=== PATIENT | male | born 1950 | race Caucasian/White ===

== ENCOUNTER → 2018-12-14 | Outpatient (CLI) | payer MEDICARE ==
[2014-07-29 04:25] VITALS: BP 121/64
[~2018-12-14] MED LIST: LISI-334 PO; metoprolol
--- NOTE | 2018-12-14 13:48 | RAD ---
EXT NON VASC RIGHT History: Right upper extremity lump for 2 weeks Comparison: None. Findings: Multiple sonographic images of the right upper extremity are submitted. At site of palpable concern, there is a heterogeneous solid-appearing mass on the order of 3 x 1.6 x 2.7 cm, some associated vascularity near the periphery and apparently tract of echogenicity extending near the skin surface. There is a separate focus of adjacent, avascular echogenicity with diffuse internal echoes about 2.1 x 1.7 x 1.4 cm in size. Impression: 1. There are 2 foci of abnormal heterogeneous echogenicity at site of concern of the right upper extremity. One these is associated with some internal vascularity with a thin tract of echogenicity extending to the skin surface. These could be due to sites of inflammatory change/phlegmon, although masses from other etiologies not excluded. Electronically signed by: Desean Parry MD (12/14/2018 1:45 PM) [id number]
== END | disposition home or self-care (01) ==
LOC: US 08:45
PROVIDERS: ATTEND Family Medicine
DX: R22.31 Localized swelling, mass and lump, right upper limb (principal)
CPT/HCPCS: 76881

== ENCOUNTER 2019-01-11 17:36 | Emergency (ER) | payer MEDICARE ==
[2014-07-29 04:25] VITALS: BP 121/64
[2019-01-11] MEDS ORDERED: LIDOCAINE 2% 20 ML VIAL. IJ ONE (18:45)
--- NOTE | 2019-01-11 19:05 | PHYS DOC ---
Past History Past Medical History: Hypertension Past Surgical History: Other Alcohol Use: Occasionally Drug Use: None Adult General Chief Complaint Chief Complaint: POST-OP PROBLEM HPI HPI Patient is a 68 year old male who presents with complaint of wound dehiscence. The patient had a cyst removed from his right upper arm by Dr. Truong 3 weeks ago. States that he recently had his sutures taken out and had Steri-Strips over the wound. Was reaching up to pain earlier today when the wound came completely open. Had blood and drainage coming from the wound immediately after this took place. He contacted Dr. Truong who advised patient to come to the emergency department. Dr. Truong called ahead of patient's arrival and spoke with Dr. Bloom. He advised that if the wound did not appear to be infected that he have a loose closure done in the emergency department with recommendation to follow-up in his clinic tomorrow. Patient denies any other complaints at this time. Review of Systems Review of Systems Constitutional: Denies fever or chills [] Eyes: Denies change in visual acuity, redness, or eye pain [] HENT: Denies nasal congestion or sore throat [] Respiratory: Denies cough or shortness of breath [] Cardiovascular: Denies chest pain or edema[] GI: Denies abdominal pain, nausea, vomiting, bloody stools or diarrhea [] : Denies dysuria or hematuria [] Musculoskeletal: Denies back pain or joint pain [] Integument: Right upper arm wound[] Neurologic: Denies headache, focal weakness or sensory changes [] All other systems were reviewed and found to be within normal limits, except as documented in this note. Current Medications Current Medications Current Medications Medications (Trade) Dose Ordered Sig/Yevgeniy Start Time Stop Time Status Last Admin Dose Admin Lidocaine HCl 20 ml 1X ONCE 01/11/19 18:45 01/11/19 18:46 DC 01/11/19 18:37 20 ML Allergies Allergies Allergies Coded Allergies Type Severity Reaction Last Updated Verified No Known Drug Allergies 07/29/14 No Physical Exam Physical Exam Constitutional: Well developed, well nourished, no acute distress, non-toxic appearance. [] HENT: Normocephalic, atraumatic, bilateral external ears normal, oropharynx moist, no oral exudates, nose normal. [] Eyes: PERRLA, EOMI, conjunctiva normal, no discharge. [] Neck: Normal range of motion, no tenderness, supple, no stridor. [] Cardiovascular:Heart rate regular rhythm, no murmur [] Lungs & Thorax: Bilateral breath sounds clear to auscultation [] Abdomen: Bowel sounds normal, soft, no tenderness, no masses, no pulsatile masses. [] Skin: Warm, dry, no erythema, no rash. [] Back: No tenderness, no CVA tenderness. [] Extremities: Right upper arm wound dehiscence measuring approximately 5 cm x 4 cm, depth of wound down to fascia, good granulation tissue present and base of wound, no purulent drainage. [] Neurologic: Alert and oriented X 3, normal motor function, normal sensory function, no focal deficits noted. [] Current Patient Data Lab Results Not performed EKG EKG Not performed[] Radiology/Procedures Radiology/Procedures Indication: Right upper arm wound dehiscence Procedure: The patient was placed in the appropriate position and anesthesia around the wound was achieved with injection of lidocaine 2%. The area was then cleansed with saline and skin was prepped with Betadine. The laceration was loosely approximated using a simple interrupted 3-0 Ethilon sutures. Half-inch iodoform packing strip was then placed into the wound. A total of 3 strips were placed measuring approximately 12 cm total. The wound area was then dressed with Telfa and gauze. Total repaired wound length: 5 cm. Other Items: Total suture count: 4 The patient tolerated the procedure without difficulty. Complications: None. Course & Med Decision Making Course & Med Decision Making Pertinent Labs and Imaging studies reviewed. (See chart for details) Patient's wound was loosely approximated as instructed by Dr. Truong in the emergency department. A bulky dressing was placed over the wound. Patient recommended to follow-up tomorrow with Dr. Truong in surgery clinic. Advised return to emergency department for any worsening symptoms. Patient was understanding and in agreement with treatment plan.[] Dragon Disclaimer Dragon Disclaimer This electronic medical record was generated, in whole or in part, using a voice recognition dictation system. Departure Departure: Impression: Primary Impression: Wound dehiscence Disposition: HOME, SELF-CARE Condition: IMPROVED Referrals: ILSA JENKINS MD (PCP) DOMINIC TRUONG MD Patient Instructions: Wound Dehiscence Additional Instructions: Follow-up with Dr. Truong tomorrow for reevaluation. Return to the emergency department for any worsening symptoms. DENISE DYER MD Jan 11, 2019 19:05
== END 2019-01-11 19:25 | disposition home or self-care (01) ==
LOC: ER 17:36
DX: T81.31XA Disruption of external operation (surgical) wound, not elsewhere classified, initial encounter (principal); I10 Essential (primary) hypertension; Z98.890 Other specified postprocedural states
CPT/HCPCS: 12020; 99284; J2001

== ENCOUNTER → 2019-11-15 | Outpatient (CLI) | payer MEDICARE ==
[2014-07-29 04:25] VITALS: BP 121/64
--- NOTE | 2019-11-15 10:15 | RAD ---
EXAM: CT Lung Cancer Screening Chest without IV contrast INDICATION: Lung cancer screening. Smoker for 30 years at 1 1/2 packs a day, quit 10 years ago. greater than 30 year pack history. TECHNIQUE: Multi-detector row low dose CT images were acquired from the thoracic inlet through the upper abdomen without the use of IV contrast. Scanning parameters were adjusted for evaluation of lung parenchyma for developing lung carcinoma with limited patient exposure. Sagittal and coronal images were acquired from the transaxial data. All CT scans performed at this facility utilize dose optimization techniques as appropriate to the exam, including the following: Automated exposure control and adjustment of the mA and/or KV according to patient size (this includes techniques or standardized protocols for targeted exams where dose is indication/reason for exam). COMPARISON: Abdomen CT of 02/12/2011 FINDINGS: The absence of IV contrast limits evaluation of soft tissue pathology. CARDIOVASCULAR: Borderline ectasia of the ascending thoracic aorta at 4.1 cm. No intramural hematoma. Dense multivessel quadrant calcifications. Normal heart size. No pericardial effusion. MEDIASTINUM & ROSHAN: Extensive mediastinal calcified lymph nodes and bilateral hilar calcified nodes. There is an 8 mm upper right paratracheal node that has not yet fully calcified. LUNGS: Calcified granuloma right upper lobe measuring 8 mm (image 53 of axial series 2 is associated tiny satellite nodules that are less densely calcified. PLEURAL SPACE: No pleural effusions. No pneumothorax. OSSEOUS & SOFT TISSUES: Unremarkable. ABDOMEN: The visualized portions of the upper abdomen are normal. Lung-RADS ASSESSMENT: LUNG-RADS CATEGORY 2: Benign Appearance or Behavior/Nodules with a very low likelihood of becoming a clinically active cancer due to size or lack of growth. -- Continue annual screening with LDCT in 12 months. E2: Soft tissue structures and skeletal structures other than the lungs contain benign findings that do not require additional follow up. That is, for malignancy surveillance. However, follow-up for cardiovascular disease is recommended. IMPRESSION: 1. Benign CT lung cancer screening findings with no evidence of malignancy. Follow up recommendations as above. 2. Evidence of granulomatous disease and atherosclerosis. Recommend clinical follow-up. Electronically signed by: Raphael Chirinos MD (11/15/2019 10:12 AM) [id number]
== END | disposition home or self-care (01) ==
LOC: CT 07:59
PROVIDERS: ATTEND Family Medicine
DX: Z00.00 Encounter for general adult medical examination without abnormal findings (principal); Z87.891 Personal history of nicotine dependence; J84.10 Pulmonary fibrosis, unspecified
CPT/HCPCS: G0297

== ENCOUNTER → 2020-12-03 | Outpatient (CLI) | payer MEDICARE ==
[2014-07-29 04:25] VITALS: BP 121/64
[~2020-12-03] MED LIST changes: -LISI-334 PO; +LISI20TA18 PO
--- NOTE | 2020-12-03 09:55 | RAD ---
CT LOW DOSE LUNG SCREEN dated 12/03/2020 9:00 AM Indication:Reason: NICOTINE DEPENDENCE / Spl. Instructions: / History: Comparison: CT 11/15/2019. Technique: Helical low-dose noncontrast images were performed. One or more of the following individualized dose reduction techniques were utilized for this examinat ion: 1. Automated exposure control 2. Adjustment of the mA and/or kV according to patient size 3. Use of iterative reconstruction technique Findings: A small calcified granulomas again seen in the middle lobe. There are some bandlike densities in the lungs consistent with areas of scarring or atelectasis. No significant new nodule is seen. The centra l airways show no obstruction. Evaluation of the mediastinum and stephanie is slightly limited by noncontr ast technique. There are calcified mediastinal and right hilar nodes consistent with prior granulomat ous infection. No new enlarged nodes are seen. Images through the upper abdomen show no new abnormality. IMPRESSION: No significant new nodule. Benign nodules. Follow-up CT in one year is recommended. Lung RADS category 1. Electronically signed by: Zurdo Nava Jr., MD (12/03/2020 9:53 AM) [id number]
== END ==
LOC: CT 08:49
PROVIDERS: ATTEND Family Medicine
DX: Z12.2 Encounter for screening for malignant neoplasm of respiratory organs (principal); R91.8 Other nonspecific abnormal finding of lung field; J84.10 Pulmonary fibrosis, unspecified; F17.201 Nicotine dependence, unspecified, in remission; R59.0 Localized enlarged lymph nodes
CPT/HCPCS: 71271

== ENCOUNTER → 2021-01-04 | Outpatient (CLI) | payer MEDICARE ==
[2014-07-29 04:25] VITALS: BP 121/64
[~2021-01-04] MED LIST changes: +IOHEXOL 240 MG/ML 50ML VIAL. ONE; +IOHEXOL 240 MG/ML 50ML VIAL. PO ONE
[2021-01-04] MEDS: IOHEXOL 300 MG/ML 75 ML VIAL. IV ONE (08:45)
--- NOTE | 2021-01-04 10:24 | RAD ---
Exam: CT abdomen/pelvis with intravenous contrast Indication: Abdominal pain Comparison: None Technique: Helical CT imaging performed of the abdomen and pelvis after the intravenous administratio n of 60 mL Omnipaque 300 contrast. Sagittal and coronal reformats were obtained. One or more of the following individualized dose reduction techniques were utilized for this examinat ion: 1. Automated exposure control 2. Adjustment of the mA and/or kV according to patient size 3. Use of iterative reconstruction technique. Findings: Lower chest: Mild atelectasis in the lingula. There is a calcified granuloma in the right middle lobe and calcified bilateral hilar lymph nodes.. Heart is normal in size. There are coronary artery calci fications. Liver: 1 cm cyst in the right hepatic lobe. The liver is otherwise unremarkable. Gallbladder/Biliary Tree: Normal. Pancreas: Normal. Spleen: Normal. Adrenal Glands: Normal. Kidneys/Ureters/Bladder: Kidneys are normal in size and enhance symmetrically. No hydronephrosis. Ure ters and bladder are normal. Reproductive Organs: Prostate gland is unremarkable. Stomach, small bowel, and colon: The stomach is normal. No small bowel obstruction. The appendix is n ormal. There is sigmoid diverticulosis without acute diverticulitis. Vasculature: No aortic aneurysm. Mild calcified aortoiliac atherosclerosis Lymph Nodes: No lymphadenopathy. Peritoneum and retroperitoneum: No free fluid or free air. Bones: No acute osseous abnormality. There is degenerative disc disease at L4-5 with posterior endpla te proliferation. Probable hemangioma in the L2 vertebral body. Mild degenerative joint disease of th e hips. Impression: 1. No acute abnormality in the abdomen and pelvis. 2. Sigmoid diverticulosis without acute diverticulitis. Electronically signed by: Lenore Baeza MD (01/04/2021 10:21 AM) [id number]
== END ==
LOC: CT 07:35
PROVIDERS: ATTEND Family Medicine
DX: K57.30 Diverticulosis of large intestine without perforation or abscess without bleeding (principal); M51.36 Other intervertebral disc degeneration, lumbar region
CPT/HCPCS: 74177; Q9967